=== PATIENT | male | born 1970 | race Hispanic/Latino ===

== ENCOUNTER 2017-10-30 08:49 | Day surgery (SDC) | payer OTHER ==
--- NOTE | 2017-10-25 15:30 | EKG ---
Test Date: 2017-10-25 Test Time: 15:03:42 [employer]ait Processing Supervisor: LEONARD MEASUREMENT RESULTS: Intervals: Rate: 62 CT: 164 QRSD: 94 QT: 394 QTc: 399 [place]: P: 61 CT: 164 QRS: 34 T: 31 INTERPRETIVE STATEMENTS: Normal sinus rhythm Normal ECG No previous ECG available for comparison Electronically Signed On 10-25-17 15:29:53 CDT by Sathish Morillo
[2017-10-25 15:36] LABS: Absolute Lymphocytes (CBC) 1.8 K/uL (0.7-4.9); Absolute Monocytes 0.5 K/uL (0.1-1.3); Basophils % 0.8 % (0-1.3); Eosinophils % 6.2 % (0-4.4); Hematocrit 44.2 % (39.6-49.0); Lymphocytes % 39.3 % (15.3-44.8); MCH 31.7 pg (27.0-35.0); MPV 8.2 fL (7.6-11.3); Monocytes % 10.1 % (3.3-12.3); RBC Red Blood Cell Count 4.85 M/uL (4.33-5.43)
--- NOTE | 2017-10-25 15:40 | RAD REPORT ---
EXAM DESCRIPTION: Mikayla Cintron (2 Views)10/25/2017 3:21 pm CLINICAL HISTORY: Preop for removal of left thigh mass COMPARISON: None FINDINGS: The lungs appear clear of acute infiltrate. The heart is borderline enlarged IMPRESSION: No acute abnormalities displayed
[2017-10-30] MEDS: Ringers Lactate 1,000 ML IV ONE ×2 (09:17→10:10)
[2017-10-30] MEDS ORDERED: CEFAZOLIN/SWI 1gm 1 GM/10 ML SYR ONE (09:55)
[2017-10-30] MEDS ORDERED: FENTANYL CITR 100 MCG/2 ML ONE (10:07)
[2017-10-30] MEDS ORDERED: LIDOCAINE 1% MPF 5 ML VIAL ONE (10:07)
[2017-10-30] MEDS ORDERED: PROPOFOL 200 MG/20 ML VIAL IV ONE (10:07)
[2017-10-30] MEDS ORDERED: MIDAZOLAM HCL 2 MG/2 ML INJ ONE (10:07)
[2017-10-30] MEDS ORDERED: ONDANSETRON HCL 40 MG/20 ML VIAL ONE (10:33)
[2017-10-30] MEDS ORDERED: KETOROLAC 30 MG/ML INJ ONE (10:33)
[2017-10-30] MEDS ORDERED: Ringers Lactate 1,000 ML IV ONE (10:35)
--- NOTE | 2017-10-30 10:42 | P.BOP ---
Preoperative diagnosis: left tender thigh subcutaneous mass Postoperative diagnosis: left tender thigh SUBFASCIAL MASS Primary procedure: Excisional biospy with LAYER CLOSURE of left tender thigh SUBFASCIAL MASS Secondary procedure: 3X3 Furnace Clerk: Bailey Bryan Estimated blood loss: <20c Specimen: SUBFASCIAL MASS Findings: MASS, FRIABLE, WELL DEFINED MARGINS Anesthesia: General Complications: None Transferred to: Recovery Room Condition: Good
[2017-10-30] MEDS ORDERED: Mastisol Adhesive Liq ONE (10:46)
[2017-10-30] MEDS: MEPERIDINE HCL 25 MG/0.5 ML ONE ×2 (11:01→11:06)
--- NOTE | 2017-11-27 14:33 | OP ---
Date of Procedure: 10/30/2017 Surgeon: Joaquin Rasmussen MD Diagnosis: Left thigh intramuscular fascial mass. Procedure: Excisional biopsy with layered closure of left tender thigh intramuscular mass. Disposition: Home. Activity: As tolerated. No heavy lifting. Followup: Follow up in my office in 1 week. Call for appointment on [phone]. For medications, see orders. Keep area dry for 48 hours, then may shower. BRITTANY/JENN Voice ID: [id number] Report ID: [id number]
--- NOTE | 2017-11-27 14:33 | OP ---
Date of Procedure: 10/30/2017 Surgeon: Joaquin Rasmussen MD Adoption Agent: AKIKO Woods. Diagnosis: Left tender thigh subcutaneous mass. Postoperative Diagnosis: Left tender thigh subfascial intramuscular mass. Procedure: Excisional biopsy of layered closure of left tender thigh intramuscular subfascial 3 x 3 cm. Specimen: Mass. Findings: The patient has an intramuscular mass involving the fascia friable with well-defined sarah ns. Anesthesia: General plus local. Indications: This is a case of a male, who comes to us with a tender mass. It is deep. He cannot f eel in the skin, but he knows it is there, but we feel it. We concur with him. It has caused him pa in and discomfort to the point that he can barely move that side without feeling some discomfort in t hat area and that interfere with his life. The patient wants that excised. The benefits, alternativ es, and risks of excision were fully explained, which include but are not limited to infection, bleed ing, damage to adjacent structures, anesthesia complication, nonhealing wound, SC, and even . Bernardo rizvi also understands this may recur, this may need more than one surgical intervention and this may not relieve any symptoms. He understood and signed the consent. The area of concern was marked by me a nd the patient down in the room. Feels like a deep mass. It does not look like the skin is involved . Description Of Procedure: So, at that moment, we brought the patient to the operating room and place d in the supine position. Anesthesia was done without complication. Thigh area was prepped and drap ed in sterile fashion. We then put lidocaine we wanted make sure that we have complete lo calization of this mass before we inject anesthetic. So, we made an incision in the skin, went down to the entire full subcutaneous tissue and then we found this mass to be coming from the fascia itsel f and going intramuscular. Even though I was going intramuscular, we did not see this becoming part of the muscle. We just opened it within his opening layers. Even though it is friable and has lot o f blood supply, it has a well-defined margin. So we were able to dissect the tissue around it and be able to nucleate this mass and cut part of the fascia that was attached to it. The area was irrigat ed. Hemostasis was obtained. The muscle was approximated in layers with chromic. The fascia was al so approximated. Subcutaneous tissue approximated with chromic and then the skin was closed. Before that irrigation, local anesthetic was applied and hemostasis was obtained. The patient tolerated th e procedure well. The patient was sent to recovery in stable condition. BRITTANY/JENN Voice ID: [id number] Report ID: [id number]
== END 2017-10-30 12:48 | disposition home or self-care (01) ==
LOC: OR 08:49
PROVIDERS: ATTEND Surgery
PROC: 0JBM0ZZ Excision of Left Upper Leg Subcutaneous Tissue and Fascia, Open Approach (ICD-10-PCS; principal; 2017-10-30 10:45)
DX: D21.22 Benign neoplasm of connective and other soft tissue of left lower limb, including hip (principal)
CPT/HCPCS: 36415; 71046; 80048; 85025; 88304; 88305; 93005; J0690; J2175; J2250; J2405; J3010